=== PATIENT | female | born 2000 | race Asian ===

== ENCOUNTER 2019-02-18 14:05 | Emergency (ER) | payer MEDICAID ==
[~2019-02-18] VITALS: Ht 165.1 cm; Wt 72.6 kg
[2019-02-18] MEDS ORDERED: DiphenhydrAMINE 50mg/ml Inj IVP ONE (14:45)
[2019-02-18] MEDS ORDERED: EPINEPHrine 1mg/1ml Amp IM ONE (14:45)
[2019-02-18] MEDS ORDERED: D5NS 1,000 ML IV ONE (14:45)
--- NOTE | 2019-02-18 14:45 | NUR ---
ED Nurse Note: Patient walked into ED c/o allergic reaction, states that she took an huy seltzer last night and began to feel swelling primarily in her eyes and now it goes to her lip. Pt aox4, on room air, placed on cont pulse ox saturating 98%, no acute distress noted. Pt denies SOB at this time.
[2019-02-18] MEDS ORDERED: EPIPEN 2-P0.3 MG/0.3 IM (14:46)
[2019-02-18] MEDS ORDERED: PREDNISONE50 MG ORAL (14:46)
--- NOTE | 2019-02-18 14:48 | Emergency Room Report ---
History of Present Illness General Chief Complaint: Allergic Reaction Source: Patient Present Illness HPI 18-year-old female no past medical history no surgical history presents with swelling of the lips eyelids that occurred at 12 AM, patient took a [place] medication and then her face started swelling, she endorsed some chest tightness, no difficulty swallowing, she noted her lip started puffing, she did have some mild difficulty breathing, symptoms have slowly improved over time, she did take a Benadryl, severity was severe, constant, no nausea no vomiting no abdominal pain patient presents for evaluation Allergies: Coded Allergies: IBUPROFEN (Verified Allergy, Unknown, 02/18/19) Patient History Past Medical History: see triage record Last Menstrual Period: n/a Reviewed Nursing Documentation: PMH: Agreed; PSxH: Agreed Nursing Documentation-PMH Past Medical History: No Stated History Review of Systems All Other Systems: negative except mentioned in HPI Physical Exam Vital Signs Date Time Temp Pulse Resp B/P (MAP) Pulse Ox O2 Delivery O2 Flow Rate FiO2 02/18/19 14:34 98.2 85 18 133/88 (103) 97 Room Air Sp02 EP Interpretation: reviewed, normal General Appearance: well appearing, no apparent distress, alert Head: normocephalic, atraumatic Eyes: bilateral eye PERRL, bilateral eye EOMI ENT: uvula midline, moist mucus membranes, other - Bilateral lip swelling, bilateral eyelid swelling Neck: supple, thyroid normal, supple/symm/no masses Respiratory: lungs clear, no respiratory distress, no retraction, no accessory muscle use, no wheezing Cardiovascular #1: normal peripheral pulses, regular rate, rhythm, no edema, no gallop, no murmur Gastrointestinal: non tender, soft, no guarding, no rebound Musculoskeletal: normal inspection Neurologic: alert, oriented x3 Psychiatric: mood/affect normal Skin: no rash, warm/dry Medical Decision Making Diagnostic Impression: Primary Impression: Allergic reaction Qualified Codes: T78.40XA - Allergy, unspecified, initial encounter Additional Impression: Anaphylaxis Qualified Codes: T78.2XXA - Anaphylactic shock, unspecified, initial encounter ER Course 18-year-old female presents with allergic reaction to drug. It with swollen eyelids and lips, will provide patient with epinephrine, Benadryl, steroids Will observe patient Multiple re-evaluations later patient has remained asymptomatic Disposition home with return precautions, will provide EpiPen as well as steroid burst Last Vital Signs Date Time Temp Pulse Resp B/P (MAP) Pulse Ox O2 Delivery O2 Flow Rate FiO2 02/18/19 14:34 98.2 85 18 133/88 (103) 97 Room Air Disposition: HOME, SELF-CARE Condition: Stable Scripts Prednisone* (PREDNISONE*) 50 Mg Tablet 50 MG ORAL DAILY, #3 TAB 0 Refills Prov: Francesco Dalal MD 02/18/19 Epinephrine (Epipen 2-Jim) 0.3 Mg/0.3 Ml Auto.injct 0.3 MG IM ONCE PRN for anaphylaxis, #1 EA Prov: Francesco Dalal MD 02/18/19 Referrals: [facility]. [facility] Patient Instructions: Anaphylactic Reaction, [id number], Drug Allergy Additional Instructions: The patient was provided with discharge instructions, notified to follow-up with a primary care doctor and or specialist in the next 24-48 hours, and to return to the ED if they have worsening of their symptoms. Please note that this report is being documented using [employer] technology. This can lead to erroneous entry secondary to incorrect interpretation by the dictating instrument. Francesco Dalal MD Feb 18, 2019 14:48
--- NOTE | 2019-02-18 15:45 | NUR ---
ED Nurse Note: IV fluids infusing. No respiratory distress noted. Saturating 100%. Will continue to monitor.
[2019-02-18 17:45] VITALS: BP 122/86
--- NOTE | 2019-02-18 17:50 | NUR ---
ER DISCHARGE NOTE: Patient is cleared to be discharged per ERMD, pt is aox4, on room air, with stable vital signs. pt was given dc and prescription instructions, pt was able to verbalize understanding, pt id band and iv site removed without complications. pt is able to ambulate with steady gait. pt took all belongings.
== END 2019-02-18 17:50 | disposition home or self-care (01) ==
LOC: EMR 14:50
DX: T78.40XA Allergy, unspecified, initial encounter (principal); T78.2XXA Anaphylactic shock, unspecified, initial encounter; Z88.6 Allergy status to analgesic agent
CPT/HCPCS: 81025; 96361; 96372; 96374; 96375; J0171; J1200; J8540; S0028; Z7502; 99284; J7030